=== PATIENT | male | born 1950 | race Caucasian/White ===

== ENCOUNTER → 2021-10-14 | Outpatient (CLI) | payer MEDICARE | LOC: KOH-I 16:03 | DX: R27.0 Ataxia, unspecified (principal) | CPT/HCPCS: 70450 ==

== ENCOUNTER → 2021-10-30 | Outpatient (CLI) | payer MEDICARE | LOC: KOH-I 11:14 | DX: F17.210 Nicotine dependence, cigarettes, uncomplicated (principal); R91.1 Solitary pulmonary nodule | CPT/HCPCS: 71271 ==

== ENCOUNTER → 2021-12-02 | Day surgery (SDC) | payer MEDICARE ==
[~2021-12-02] MED LIST: BUSPAR 10MG10 MG PO; DESYREL 50 MG T50 MG PO; EFFEXOR XR 150150 MG PO; GUMMI BEAR MUL1 EACH PO; LEVOTHYROXINE175 MCG PO; NORVASC5 MG PO; VIAGRA100 MG PO
== END | disposition home or self-care (01) ==
LOC: OR 06:01
PROVIDERS: Internal Medicine Gastroenterology
PROC: 0DBN8ZZ Excision of Sigmoid Colon, Via Natural or Artificial Opening Endoscopic (ICD-10-PCS; 2021-12-02)
PROC: 0DBP8ZZ Excision of Rectum, Via Natural or Artificial Opening Endoscopic (ICD-10-PCS; 2021-12-02)
PROC: 0DBM8ZZ Excision of Descending Colon, Via Natural or Artificial Opening Endoscopic (ICD-10-PCS; principal; 2021-12-02 08:15)
DX: K63.5 Polyp of colon (principal); K62.1 Rectal polyp; K64.2 Third degree hemorrhoids; K57.30 Diverticulosis of large intestine without perforation or abscess without bleeding; Z20.822 Contact with and (suspected) exposure to COVID-19; F17.210 Nicotine dependence, cigarettes, uncomplicated; I10 Essential (primary) hypertension; E03.9 Hypothyroidism, unspecified; E66.3 Overweight; Z68.28 Body mass index [BMI] 28.0-28.9, adult; Z79.899 Other long term (current) drug therapy
CPT/HCPCS: J2704; J7040